=== PATIENT | female | born 1935 | race Two or more races ===

== ENCOUNTER 2023-07-23 13:24 | Outpatient (RCR) | payer MEDICARE, MEDICAID, SELFPAY | END 2023-08-25 10:17 | disposition home or self-care (01) | LOC: HO.WCC 13:24 | PROVIDERS: PCP Internal Medicine; Referring Provider Internal Medicine; Visit Provider Surgery | DX: E11.622 Type 2 diabetes mellitus with other skin ulcer (principal); L89.210 Pressure ulcer of right hip, unstageable; E11.40 Type 2 diabetes mellitus with diabetic neuropathy, unspecified; E11.22 Type 2 diabetes mellitus with diabetic chronic kidney disease; I13.0 Hypertensive heart and chronic kidney disease with heart failure and stage 1 through stage 4 chronic kidney disease, or unspecified chronic kidney disease; N18.9 Chronic kidney disease, unspecified; I50.9 Heart failure, unspecified; Z79.4 Long term (current) use of insulin; Z95.0 Presence of cardiac pacemaker | CPT/HCPCS: 11042 ==